=== PATIENT | female | born 1970 | race Caucasian/White ===

== ENCOUNTER 2016-08-05 14:28 | Inpatient (IN) | payer OTHER ==
--- NOTE | ~2016-08-05 | CO ---
Unit #: [id number] #: [id number] Patient: KALEN HAWKINS [id number] [address] [place], [place] [address] [id number] I MR#: [id number] NAME: KALEN HAWKINS ROOM: [facility] Age: 45 Sex: F Admission Date: 08/05/2016 : 1970 Attending Physician: Adalgisa Joseph M.D. Primary Care Physician: No Primary Care Physician CONSULTATION REPORT REASON FOR CONSULTATION Critical care management, respiratory failure. CHIEF COMPLAINT Altered mental status. 45-year-old female with a past medical history of COPD, brought to the emergency room with a complaint of presumably abusing IV drugs in the car in the parking lot and was found to be hypoxic, agitated. Placed on BiPAP. I am seeing patient at bedside. Currently awake, alert, and she uses IV cocaine, amphetamine and meth. PAST MEDICAL HISTORY COPD. SURGICAL HISTORY 1. . 2. Tubal ligation. 3. Ovarian cyst removal. 4. Appendectomy. SOCIAL HISTORY Positive for smoking and IV drug abuse and alcohol abuse. FAMILY HISTORY None. ALLERGIES No known drug allergies. HOME MEDICATION Albuterol. PHYSICAL EXAMINATION VITAL SIGNS: Temperature 98, pulse 87, respirations 12, blood pressure 110/70. NEUROLOGICAL: Awake, alert, oriented. No neuro deficit. HEENT: PERRLA. NECK: Supple. No JVD. CHEST: Bilateral air entry, bilateral mild rhonchi. GI: Nontender, soft. Bowel sounds positive. EXTREMITIES: No edema. SKIN: No rashes, no ulcers. Unit #: [id number] #: [id number] Patient: KALEN HAWKINS LYMPHATIC: No lymphadenopathy. DIAGNOSTIC STUDIES Labs and imaging have been reviewed. ASSESSMENT AND PLAN 1. Acute hypercapnic/hypoxic respiratory failure. 2. Acute exacerbation of chronic obstructive pulmonary disease. 3. Intravenous drug use. 4. Polysubstance abuse. Plan is to continue patient on oxygen, bronchodilator, GI and DVT prophylaxis. Wean off BiPAP. IV steroids. Start IV antibiotic. Patient will be closely monitored. Please see orders for detailed plan. Thank you very much for this consultation. Will need psychiatric evaluation as well. Dictated by... Mau Lewis/marii TD: 08/06/2016 07:34 JOB #: [id number] CONSULTATION REPORT Page 1 of 1 X Lauren Ardon MD CONSULTATION REPORT
--- NOTE | ~2016-08-05 | CR72 ---
[facility] A Service of [facility] & [facility] RADIOLOGY TEXT RESULTS PATIENT: KALEN HAWKINS LOCATION: [facility] CICCU3-20 : [birth year] UNIT #: [id number] AGE: [address]: MAGALYS MORENO MD SEX: F ORDER DR: [id number] [facility] [address] [facility]. [place], [place] [address] [id number] E MR#: [id number] Acc #: [id number] NAME: KALEN HAWKINS : 1970 SEX: F STUDY DATE/TIME: 08/05/2016 14:38 UNIT: [facility] ROOM: STUDY DESCRIPTION: CR Chest Single View Portable Attending Physician: Teressa Echeverria M.D. Ordering Physician: Teressa Echeverria M.D. MEDICAL IMAGING REPORT This report is preliminary unless electronic signature is present EXAM AP chest radiograph 08/05 COMPARISON 02/04/2016. HISTORY Meth overdose today, short of breath. FINDINGS An AP view is obtained. Cardiac size in the patient is normal. Lungs show some prompt interstitial markings. No acute infiltrates are seen. CONCLUSION 1. No acute process in the chest. Dictated by... Raleigh Merchant M.D. THIS IS AN ELECTRONICALLY VERIFIED REPORT Raleigh Merchant M.D. at 08/06/2016 7:32 AM LENA/samanta TD: 08/05/2016 16:39 JOB #: [id number] MEDICAL IMAGING REPORT Page 1 of 1 COPY
--- NOTE | ~2016-08-05 | DS ---
Unit #: [id number] #: [id number] Patient: KALEN HAWKINS [id number] [address] [place], [place] [address] [id number] I MR#: [id number] NAME: KALEN HAWKINS ROOM: [facility] Age: 45 Sex: F Admission Date: 08/05/2016 : 1970 Discharge Date: 08/06/2016 Attending Physician: Lawrence Thomas M.D. DISCHARGE SUMMARY DATE OF DISCHARGE/SIGNING OUT AGAINST MEDICAL ADVICE August 06, 2016 ADMITTING DIAGNOSES 1. Acute respiratory failure. 2. Drug overdosage secondary to heroin. 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 Ardon HISTORY OF PRESENTING ILLNESS The patient is a 45-year-old lady with a past medical history of polysubstance abuse who was admitted through the emergency room with drug overdosage. Apparently, she was doing drugs in the parking lot. Her toxicology screen was positive for multiple things including heroin. HOSPITAL COURSE She was initially on BiPAP in the ICU. By the time I saw her this afternoon, she was off the BiPAP, and she was doing clinically better. Later in the evening, apparently she called the nurses and told them that she is signing against medical advice, and that she has to take care of her kids at home and there is no one to take care of the kids. She left against medical advice without any new prescriptions. Dictated by... Lawrence Thomas M.D. PS/petrona TD: 08/06/2016 21:58 JOB #: [id number] DISCHARGE SUMMARY Page 1 of 1 X X DISCHARGE SUMMARY
--- NOTE | ~2016-08-05 | EKG ---
PATIENT: KALEN HAWKINS UNIT #: [id number] Ventricular Rate: 72 BPM Atrial Rate: 72 BPM P-R Interval: 158 ms QRS Duration: 96 ms Q-T Interval: 416 ms QTC Calculation(Bezet): 455 ms P [place]: 70 degrees Calculated R [place]: 75 degrees Calculated T [place]: 63 degrees Diagnosis Line: Normal sinus rhythm Diagnosis Line: Normal ECG Diagnosis Line: When compared with ECG of 05-AUG-2016 14:11, Diagnosis Line: No significant change was found Diagnosis Line: Confirmed by NASRA MACK MD ([id number]) on 08/07/2016 Diagnosis Line: 7:11:54 PM INTERPRETING MD: MARTINA GRIJALVA
--- NOTE | ~2016-08-05 | EKG ---
PATIENT: KALEN HAWKINS UNIT #: [id number] Ventricular Rate: 88 BPM Atrial Rate: 88 BPM P-R Interval: 150 ms QRS Duration: 100 ms Q-T Interval: 398 ms QTC Calculation(Bezet): 481 ms P [place]: 77 degrees Calculated R [place]: 64 degrees Calculated T [place]: 40 degrees Diagnosis Line: Normal sinus rhythm Diagnosis Line: Possible Left atrial enlargement Diagnosis Line: Incomplete right bundle branch block Diagnosis Line: Left ventricular hypertrophy Diagnosis Line: Prolonged QT Diagnosis Line: Abnormal ECG Diagnosis Line: No previous ECGs available Diagnosis Line: Confirmed by NASRA MACK MD ([id number]) on 08/06/2016 Diagnosis Line: 5:45:19 AM INTERPRETING MD: MARTINA GRIJALVA
--- NOTE | ~2016-08-05 | HP ---
Unit #: [id number] #: [id number] Patient: KALEN HAWKINS [id number] [address] [address] [id number] I MR#: [id number] NAME: KALEN HAWKINS ROOM: [id number] Age: 45 Sex: F Admission Date: 08/05/2016 : 1970 Attending Physician: Adalgisa Joseph M.D. Primary Care Physician: No Primary Care Physician HISTORY AND PHYSICAL CHIEF COMPLAINT The altered mental status. HISTORY OF PRESENT ILLNESS The patient is a 45-year-old female with a history of chronic COPD, brought to the emergency room from a car in the parking lot. The patient was presumably abusing the IV drugs in a car in the parking lot. The patient was found to be hypoxic and agitated. The patient has been started on BiPAP and patient received the Ativan for agitation. The patient is unable to provide any history and the history is obtained by speaking to the patient's mother at the bedside. The patient has a long history of IV drug abuse with the cocaine, amphetamines and meth and no further history is available. PAST MEDICAL HISTORY History of COPD. PAST SURGICAL HISTORY History of , tubal ligation, ovarian cyst removal and appendectomy. SOCIAL HISTORY The patient smokes a pack of cigarettes daily. She has remote alcohol abuse and positive for IV drug abuse. FAMILY HISTORY Family history reviewed and none. ALLERGIES No known drug allergies. HOME MEDICATIONS Albuterol. SOCIAL HISTORY Patient is lying on a bed, not in acute distress. PHYSICAL EXAMINATION VITAL SIGNS: Temperature 98, pulse 85, respiratory rate 18, blood pressure 108/64, sating 97% at room air at the time of arrival. HEENT: Head atraumatic, normocephalic. Pupils equal, round and reacting to light and accommodation. Extraocular movements are intact. Dry mucous membranes. Unit #: [id number] #: [id number] Patient: KALEN HAWKINS NECK: Supple. LUNGS: Decreased air entry at the bases. Positive for wheezing. HEART: Regular rate and rhythm. ABDOMEN: Soft, positive bowel sounds. EXTREMITIES: No cyanosis. No clubbing. NEUROLOGIC: Agitated, on BiPAP and confused. DIAGNOSTIC STUDIES LABORATORY DATA: Blood gas pH 7.23, pCO2 62, pO2 83, bicarb 26, saturation 91%. Glucose 154, BUN 17, creatinine 0.6, sodium 139, potassium 3.2, chloride 104, bicarb 26, calcium 8.9, magnesium 1.8, AST 23, ALT 19, alkaline phosphatase 73, lipase 34, BNP 19, alcohol less than 5, WBC 6.3, hemoglobin 11.9, hematocrit 37.5, platelets 246. Urine tox is positive for cocaine, amphetamines and opiates and UA shows 1+ protein, and urine RBCs 5 to 10. IMAGING: Chest x-ray is negative. ASSESSMENT 1. Acute respiratory failure. 2. Chronic obstructive pulmonary disease. 3. Polysubstance abuse. 4. Hypokalemia. PLAN 1. Plan to admit the patient to the inpatient. 2. Patient will have a weaning of the BiPAP. 3. Consult Dr. Ardon for the critical care and continue with the IV steroids, Solu-Medrol 60 mg q.8 h. and DuoNeb q.4 h. p.r.n. and replace the potassium per protocol and repeat the labs again in the morning. 4. Further recommendations will follow. Patient is a Full Code at this time. Dictated by Mau Sen/zoraida TD: 08/05/2016 20:18 JOB #: [id number] HISTORY AND PHYSICAL Page 1 of 1 X X HISTORY AND PHYSICAL
[2016-08-05 14:13] LABS: ARTERIAL BLOOD GAS CARBOXY HB 1.7 %sat (0.0-9.0); ARTERIAL BLOOD GAS HCO3 26.5 mmol/L; ARTERIAL BLOOD GAS MET HB 0.7 %sat (0.0-2.0); ARTERIAL BLOOD GAS PO2 83.8 mmHg (80.0-100); ARTERIAL BLOOD GAS pH 7.239 (7.350-7.450)
[2016-08-05 14:15] LABS: ARTERIAL BLOOD GAS ALLEN TEST NORMAL; ARTERIAL BLOOD GAS ART SITE RIGHT BRACHIAL; ARTERIAL BLOOD GAS DELIVERY NASAL CANNULA; ARTERIAL DRAW? YES
[2016-08-05 14:28] LABS: HEMATOCRIT 37.5 % (35.0-45.0); HEMOGLOBIN 11.9 gm/dL (12.0-16.0); LYMPHOCYTE# 2.7 X10e3 (1.0-3.5); LYMPHOCYTE% 43.4 % (17.0-45.0); MEAN CELL VOLUME 82.8 FL (83-96); MEAN CORPUSCULAR HEMOGLOBIN 26.3 PG (28-34); MEAN CORPUSCULAR HGB CONC 31.8 g/dL (30-36); MEAN PLATELET VOLUME 7.8 FL (6.5-11.5); MONOCYTE# 0.4 X10e3 (0-1.0); MONOCYTE% 5.8 % (3.0-12.0); NEUTROPHIL# 3.2 X10e3 (1.5-7.1); NEUTROPHIL% 50.8 % (40-75); PLATELET COUNT 246 X10e3 (140-420); RED BLOOD COUNT 4.53 X10e (3.90-5.30); RED CELL DISTRIBUTION WIDTH 13.5 % (11.0-15.5); WHITE BLOOD COUNT 6.3 X10e3 (4.0-10.5)
[~2016-08-05 14:28] MED LIST: ALBUTEROL20 ml INH
[2016-08-05 14:29] LABS: DIFF IND NO
[2016-08-05 14:52] LABS: ALBUMIN SERUM 4.1 g/dL (3.5-5.0); ALKALINE PHOSPHATASE 73 U/L (32-92); ALT (SGPT) 19 U/L (10-40); AST (SGOT) 23 U/L (10-42); BILIRUBIN, DIRECT 0.1 mg/dL (0.0-0.2); BILIRUBIN,INDIRECT 0.7 mg/dL (0.0-0.9); BILIRUBIN,TOTAL 0.8 mg/dL (0.2-2.0); BLOOD UREA NITROGEN 17 mg/dL (9-23); BUN/CREATININE RATIO 28.33; CALCIUM SERUM 8.9 mg/dL (8.4-10.2); CARBON DIOXIDE 26 mmol/L (22-31); CHLORIDE 104 mmol/L (100-111); CREATININE SERUM 0.6 mg/dL (0.6-1.4); GLOM FILT RATE Estimated 110.9 mL/min (>60); GLUCOSE FASTING 154 mg/dL (70-110); LIPASE 34 U/L (22-51); MAGNESIUM 1.8 mg/dL (1.6-3.0); POTASSIUM 3.2 mmol/L (3.5-5.1); PROTEIN TOTAL SERUM 6.9 g/dL (6.0-8.3); SODIUM 139 mmol/L (135-145)
[2016-08-05 14:53] LABS: ALCOHOL BLOOD <5 mg/dL (0)
[2016-08-05 15:24] LABS: POC - CKMB 1.3 ng/mL (0.0-7.9); POC - TROPONIN <0.05 ng/mL (<=0.05)
[2016-08-05 16:05] LABS: URINE SOURCE CLEAN CATCH
[2016-08-05 16:17] LABS: URINE APPEARANCE CLOUDY; URINE BILIRUBIN NEG (NEG); URINE BLOOD TRACE (NEG); URINE COLOR YELLOW; URINE GLUCOSE NEG (NEG); URINE KETONE NEG (NEG); URINE LEUKOCYTE ESTERASE NEG (NEG); URINE NITRATE NEG (NEG); URINE PROTEIN 1+ (NEG); URINE SPECIFIC GRAVITY 1.021 (1.003-1.035)
[2016-08-05 16:20] LABS: URINE BACTERIA AUWI NEG (NEGATIVE); URINE SQUAMOUS EPITHELIAL CELL OCC /[HPF]
[2016-08-05 16:26] LABS: AMPHETAMINE POS (NEG); BARBITURATES NEG (NEG); BENZODIAZEPINES NEG (NEG); COCAINE POS (NEG); MARIJUANA NEG (NEG); OPIATES POS (NEG); TRICYCLIC ANTIDEPRESSANTS NEG (NEG); U METHADONE NEG (NEG)
[2016-08-05 16:35] LABS: CULTURE INDICATED? NO
[2016-08-05 20:12] LABS: ARTERIAL BLD GAS O2 SATURATION 96.6 % (90.0-100.0); ARTERIAL BLOOD GAS CARBOXY HB 0.7 %sat (0.0-9.0); ARTERIAL BLOOD GAS HCO3 27.4 mmol/L; ARTERIAL BLOOD GAS MET HB 0.8 %sat (0.0-2.0); ARTERIAL BLOOD GAS pH 7.287 (7.350-7.450)
[2016-08-05 20:14] LABS: ARTERIAL BLOOD GAS ALLEN TEST NORMAL; ARTERIAL BLOOD GAS ART SITE RIGHT RADIAL; ARTERIAL BLOOD GAS PCO2 57.5 mmHg (35.0-45.0); ARTERIAL DRAW? YES
[2016-08-05] MEDS ORDERED: NO MEDICATIONS (20:16)
[2016-08-05] MEDS ORDERED: ALBUTEROL MININEB INH (21:34)
[2016-08-06 03:10] LABS: BASOPHIL% 0.2 % (0-2.5); HEMATOCRIT 39.4 % (35.0-45.0); HEMOGLOBIN 12.5 gm/dL (12.0-16.0); LYMPHOCYTE% 27.4 % (17.0-45.0); MEAN CELL VOLUME 83.6 FL (83-96); MEAN CORPUSCULAR HEMOGLOBIN 26.5 PG (28-34); MEAN CORPUSCULAR HGB CONC 31.8 g/dL (30-36); MEAN PLATELET VOLUME 8.3 FL (6.5-11.5); MONOCYTE% 1.4 % (3.0-12.0); NEUTROPHIL# 2.5 X10e3 (1.5-7.1); PLATELET COUNT 222 X10e3 (140-420); RED BLOOD COUNT 4.71 X10e (3.90-5.30); RED CELL DISTRIBUTION WIDTH 13.2 % (11.0-15.5); WHITE BLOOD COUNT 3.5 X10e3 (4.0-10.5)
[2016-08-06 03:12] LABS: DIFF IND NO
[2016-08-06 03:39] LABS: CALCIUM SERUM 8.6 mg/dL (8.4-10.2); CREATININE SERUM 0.5 mg/dL (0.6-1.4); GLOM FILT RATE Estimated 117.7 mL/min (>60)
[2016-08-06 03:53] LABS: POTASSIUM 4.9 mmol/L (3.5-5.1)
[2016-08-06 10:45] LABS: ARTERIAL BLD GAS O2 SATURATION 96.8 % (90.0-100.0); ARTERIAL BLOOD GAS ALLEN TEST NORMAL; ARTERIAL BLOOD GAS CARBOXY HB 0.3 %sat (0.0-9.0); ARTERIAL BLOOD GAS HCO3 23.9 mmol/L; ARTERIAL BLOOD GAS MET HB 0.7 %sat (0.0-2.0); ARTERIAL BLOOD GAS PCO2 42.1 mmHg (35.0-45.0); ARTERIAL BLOOD GAS pH 7.362 (7.350-7.450); ARTERIAL DRAW? YES
[2016-08-06 10:46] LABS: ARTERIAL BLOOD GAS ART SITE LEFT RADIAL; ARTERIAL BLOOD GAS DELIVERY NASAL CANNULA
== END 2016-08-06 17:46 | disposition left against medical advice (07) | DRG 917 ==
LOC: CED 14:28 → CEDOF 18:53 → CICCU3 21:20
PROVIDERS: Internal Medicine; Student in an Organized Health Care Education/Training Program
PROC: 5A09357 Assistance with Respiratory Ventilation, Less than 24 Consecutive Hours, Continuous Positive Airway Pressure (ICD-10-PCS; principal; 2016-08-05)
DX: T40.1X1A Poisoning by heroin, accidental (unintentional), initial encounter (principal); J96.00 Acute respiratory failure, unspecified whether with hypoxia or hypercapnia; G92 Toxic encephalopathy; J44.1 Chronic obstructive pulmonary disease with (acute) exacerbation; R45.1 Restlessness and agitation; F14.10 Cocaine abuse, uncomplicated; F15.10 Other stimulant abuse, uncomplicated; F11.10 Opioid abuse, uncomplicated; F17.210 Nicotine dependence, cigarettes, uncomplicated; E87.6 Hypokalemia
CPT/HCPCS: 36600; 51701; 71010; 80048; 80076; 80307; 81003; 82553; 82803; 82947; 83690; 83735; 83880; 84132; 84484; 85025; 93005; 94640; 94660; 94760; 94761; 96361; 96374; 99291; G0480; J1650; J2060; J2920; J2930; J3475

== ENCOUNTER 2016-08-09 20:23 | Emergency (ER) | payer OTHER ==
--- NOTE | ~2016-08-09 | US85 ---
[facility] A Service of [facility] RADIOLOGY TEXT RESULTS PATIENT: KALEN HAWKINS LOCATION: [facility] : 72 UNIT #: [id number] AGE: [address]: CHIP MCELROY SEX: F ORDER DR: [id number] [facility] [address] [facility]. [place], [place] [address] [id number] E MR#: [id number] Acc #: [id number] NAME: KALEN HAWKINS : 1970 SEX: F STUDY DATE/TIME: 08/09/2016 20:37 UNIT: [facility] ROOM: STUDY DESCRIPTION: [facility] Code Climate [facility] Attending Physician: Chip Mcelroy Aprn Ordering Physician: Chip Mcelroy Aprn MEDICAL IMAGING REPORT This report is preliminary unless electronic signature is present EXAM Left lower extremity venous ultrasound HISTORY Left lower extremity and foot swelling for 2 days. Twisting injury yesterday. TECHNIQUE Venous ultrasound examination of the left lower extremity was performed using grayscale, spectral Doppler and color flow Doppler imaging. FINDINGS The examination is negative. There is no evidence of left lower extremity deep venous thrombus from the groin to the lower calf. Visualized greater saphenous vein is also patent. IMPRESSION Negative examination. No evidence of left lower extremity deep venous thrombosis. Dictated by... Jm Bella M.D. THIS IS AN ELECTRONICALLY VERIFIED REPORT Jm Bella M.D. at 08/09/2016 10:31 PM DFL/pcl TD: 08/09/2016 22:00 JOB #: [id number] [facility] A Service of [facility] RADIOLOGY TEXT RESULTS PATIENT: KALEN HAWKINS LOCATION: [facility] : 72 UNIT #: [id number] AGE: [address]: CHIP MCELROY SEX: F ORDER DR: MEDICAL IMAGING REPORT Page 1 of 1 COPY
--- NOTE | ~2016-08-09 | CR126 ---
[facility] A Service of [facility] & [facility] RADIOLOGY TEXT RESULTS PATIENT: KALEN HAWKINS LOCATION: [facility] : 72 UNIT #: [id number] AGE: [address]: CHIP MCELROY SEX: F ORDER DR: [id number] [facility] [address] [place], [place] [address] [id number] E MR#: [id number] Acc #: [id number] NAME: KALEN HAWKINS : 1970 SEX: F STUDY DATE/TIME: 08/09/2016 20:56 UNIT: [facility] ROOM: STUDY DESCRIPTION: CR Foot Complete Min 3 View Lt Attending Physician: Chip Mcelroy Aprn Ordering Physician: Chip Mcelroy Aprn Primary Care Physician: No Primary Care Physician MEDICAL IMAGING REPORT This report is preliminary unless electronic signature is present EXAM Left foot series INDICATIONS Left foot pain after a fall yesterday. PROCEDURE 3 views left foot COMPARISON None FINDINGS A fracture of the distal fibula refer to the ankle series. No fracture or dislocation of the foot. IMPRESSION 1. No acute findings in the foot. 2. Refer to the separate ankle series Dictated by... Jovan Bowden M.D. THIS IS AN ELECTRONICALLY VERIFIED REPORT Jovan Bowden M.D. at 08/12/2016 9:46 AM JULIETA/sydney TD: 08/09/2016 22:11 JOB #: [id number] MEDICAL IMAGING REPORT Page 1 of 1 COPY
--- NOTE | ~2016-08-09 | CR20 ---
[facility] A Service of [facility] & [facility] RADIOLOGY TEXT RESULTS PATIENT: KALEN HAWKINS LOCATION: [facility] : 72 UNIT #: [id number] AGE: [address]: CHIP MCELROY SEX: F ORDER DR: [id number] [facility] [address] [facility]. [place], [place] [address] [id number] E MR#: [id number] Acc #: [id number] NAME: KALEN HAWKINS : 1970 SEX: F STUDY DATE/TIME: 08/09/2016 20:56 UNIT: [facility] ROOM: STUDY DESCRIPTION: CR Ankle Min 3 Views Lt Attending Physician: Chip Mcelroy Aprn Ordering Physician: Chip cMelroy Aprn Primary Care Physician: No Primary Care Physician MEDICAL IMAGING REPORT This report is preliminary unless electronic signature is present EXAM Left ankle series. INDICATIONS Left ankle pain after a fall yesterday. PROCEDURE 3 views of the left ankle. COMPARISON None. FINDINGS Oblique fracture through the distal fibula extending to the ankle joint line. No dislocation. There is minimal distraction of the fracture. IMPRESSION Minimally distracted oblique fracture of the distal fibula. Dictated by... Jovan Bowden M.D. THIS IS AN ELECTRONICALLY VERIFIED REPORT Jovan Bowden M.D. at 08/12/2016 9:46 AM JULIETA/willa TD: 08/09/2016 22:13 JOB #: [id number] MEDICAL IMAGING REPORT Page 1 of 1 COPY
--- NOTE | ~2016-08-09 | CR252 ---
[facility] A Service of [facility] & [facility] RADIOLOGY TEXT RESULTS PATIENT: KALEN HAWKINS LOCATION: [facility] : 72 UNIT #: [id number] AGE: [address]: CHIP MCELROY SEX: F ORDER DR: [id number] [facility] [address] [place], [place] [address] [id number] E MR#: [id number] Acc #: [id number] NAME: KALEN HAWKINS : 1970 SEX: F STUDY DATE/TIME: 08/09/2016 20:54 UNIT: [facility] ROOM: STUDY DESCRIPTION: CR Tibia and Fibula 2 Views Lt Attending Physician: Chip Mcelroy Aprn Ordering Physician: Chip Mcelroy Aprn Primary Care Physician: No Primary Care Physician MEDICAL IMAGING REPORT This report is preliminary unless electronic signature is present EXAM Left tib-fib series INDICATIONS Left leg pain and swelling after fall yesterday. PROCEDURE 2 views of the left tibia and fibula COMPARISON None FINDINGS There is an obliquely oriented fracture of the distal fibula, approximately 4 mm of displacement. No dislocation. IMPRESSION Oblique fracture of the distal fibula best seen on the lateral view Dictated by... Jovan Bowden M.D. THIS IS AN ELECTRONICALLY VERIFIED REPORT Jovan Bowden M.D. at 08/12/2016 9:46 AM JULIETA/lindsay TD: 08/09/2016 22:09 JOB #: [id number] MEDICAL IMAGING REPORT Page 1 of 1 COPY
[~2016-08-09 20:23] MED LIST changes: +ALBUTEROL MININEB INH; +NO MEDICATIONS
== END 2016-08-09 21:50 | disposition home or self-care (01) ==
LOC: CFTX 20:23
DX: S82.432A Displaced oblique fracture of shaft of left fibula, initial encounter for closed fracture (principal); J44.9 Chronic obstructive pulmonary disease, unspecified; J45.909 Unspecified asthma, uncomplicated; F17.210 Nicotine dependence, cigarettes, uncomplicated; Z79.899 Other long term (current) drug therapy; X50.1XXA Overexertion from prolonged static or awkward postures, initial encounter; Y92.9 Unspecified place or not applicable
CPT/HCPCS: 29505; 29515; 73590; 73610; 73630; 93971; 99284